=== PATIENT | female | born 1955 ===

== ENCOUNTER 2022-04-18 05:16 | Day surgery (SDC) | payer OTHER ==
[~2022-04-18] VITALS: Ht 160 cm; Wt 68.0 kg
[~2022-04-18 05:16] MED LIST: FOSAMAX70 MG PO; VITAMIN D PO
[2022-04-18] MEDS ORDERED: COLACE100 MG PO (10:37)
[2022-04-18] MEDS ORDERED: ULTRACET PO (10:37)
== END 2022-04-18 15:30 | disposition home or self-care (01) ==
LOC: CIR.AMB 05:16
PROVIDERS: ATTEND Surgery
DX: K62.82 Dysplasia of anus (principal); Z20.822 Contact with and (suspected) exposure to COVID-19; Z88.2 Allergy status to sulfonamides; Z88.0 Allergy status to penicillin; Z86.16 Personal history of COVID-19; K64.4 Residual hemorrhoidal skin tags